=== PATIENT | female | born 1985 | race Caucasian/White ===

== ENCOUNTER 2018-04-16 21:15 | Emergency (ER) | payer MEDICAID, SELFPAY ==
[2018-04-16 21:16] VITALS: BP 135/61; PULSE 106; RESP 16; TEMP 36.1; O2SAT 98; BMI 18.4
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
[2018-04-16 22:18] LABS: Internal QC Validated? YES +Cl - CLEAR BKGD; Pregnancy, Urine Negative Negative
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
== END 2018-04-16 23:23 | disposition home or self-care (01) ==
PROVIDERS: Emergency Medicine; Emergency Provider Emergency Medicine
DX: S70.02XA Contusion of left hip, initial encounter (principal); V49.50XA Passenger injured in collision with unspecified motor vehicles in traffic accident, initial encounter; Y93.89 Activity, other specified; Z72.0 Tobacco use
CPT/HCPCS: 70450; 73502; 81025; 99282

== ENCOUNTER 2022-07-18 15:07 | Emergency (ER) | payer MEDICAID, SELFPAY ==
[2022-07-18 15:07] VITALS: BP 156/86; PULSE 107; RESP 16; TEMP 36.6; O2SAT 100; BMI 18.8
--- NOTE | 2022-07-18 15:42 | EX.ED.SAOD ---
HPI History of Present Illness Chief Complaint: Substance Abuse Narrative Narrative: 36-year-old female presents with her boyfriend for detoxification from fentanyl and from benzodiazepines. She states that she is also uses methamphetamines, but realizes there is no detox for that. She denies any alcohol use. She states her last used fentanyl was the day before yesterday. She is experiencing diarrhea, and abdominal cramping. Yesterday, she took 2 bar of benzodiazepines. She states that she usually injects fentanyl, and was skin popping a few months ago. She thinks that she has been through detox here when they first opened up but cannot recall when her last detox was, if it was over a year ago. [facility] Medical History (Updated 07/18/22 @ 17:50 by Brenton Sánchez MD) Substance abuse Home Medications NK 04/16/18 [History Last Taken Unknown] Allergy/AdvReac Type Severity Reaction Status Date / Time carboxymethylcellulose sodium Allergy Other Verified 07/18/22 15:10 [From Tears Again] mineral oil Allergy Other Verified 07/18/22 15:10 [From Tears Again] mineral oil Allergy Other Verified 07/18/22 15:10 [From Tears Again] petrolatum,white Allergy Other Verified 07/18/22 15:10 [From Tears Again] Social History Smoking Status: Current every day smoker tobacco type: cigarettes ROS ROS ED ROS Narrative Constitutional: No fever, no chills. HEENT: No sore throat. No neck pain. No loss of vision. No rhinorrhea. Cardiovascular: No chest pain. No palpitations. No pedal edema. Respiratory: No cough, no shortness of breath. Abdominal: Positive diffuse abdominal cramping/abdominal pain. No nausea. No vomiting. Positive diarrhea. Genitourinary: No dysuria. No hematuria. Musculoskeletal: No myalgias. No arthralgias. Neurologic: No headaches. No dizziness. No lightheadedness. Skin: No rash. No change in color. Psychiatric: No depression. No anxiety. EXAM Physical Exam Narrative Exam Narrative: Afebrile. Vital signs noted. HEENT: Normocephalic. Atraumatic. PERRL, EOMI. Neck soft and supple. No point tenderness or step off. Cardiovascular: Regular rate and rhythm with intermittent tachycardia. No murmurs, rubs, or gallops appreciated. Respiratory: No tachypnea. Lungs clear to auscultation bilaterally. Gastrointestinal: Abdomen soft, nontender, with normoactive bowel sounds. No rebound or guarding. Neurological: Awake. Alert. Nonfocal, nonlateralizing. Skin: No rash. Normal color. No pallor. Musculoskeletal: No pedal edema. Full range of motion extremities. Const Vital Signs: 07/18/22 15:07 Temperature 97.8 F Temperature Source Temporal Pulse Rate 107 H Respiratory Rate 16 Blood Pressure 156/86 H Blood Pressure Mean 109 Pulse Ox 100 Oxygen Delivery Method Room Air MDM MDM MDM Narrative Medical decision making narrative: Medical screening labs will be obtained and reviewed. I will discuss patient with the hospitalist for detox. Patient states that she is aware that inpatient rehab is not performed here and that she plans on going to [facility] afterwards. I reviewed her urine for drugs of abuse which is positive for amphetamines, MDMA, and benzodiazepines but negative for opiates. However, she states that she abuses fentanyl. There was difficulty in obtaining her laboratory work. I was informed by the RN that they were having difficulty obtaining her blood work, so she eloped from the emergency department. Patient was in stable condition. Lab Data Labs: Laboratory Results - last 24 hr 07/18/22 16:10 Urine Opiates Screen NEGATIVE Urine Methadone Screen NEGATIVE Ur Barbiturates Screen NEGATIVE Ur Phencyclidine Scrn NEGATIVE Ur Amphetamines Screen POSITIVE H MDMA (Ecstasy) Screen POSITIVE H U Benzodiazepines Scrn POSITIVE H Urine Cocaine Screen NEGATIVE U Cannabinoids Screen NEGATIVE Ur Drug Screen Comment Discharge Plan Triage Chief Complaint: Substance Abuse ED Provider: Brenton Sánchez Dx/Rx/DC Orders Clinical Impression: Opiate addiction, Benzodiazepine abuse, Desire for detoxification Prescriptions: No Action NK Primary Care Provider: Care Physician,No Primary Referrals: Care Physician,No Primary [Primary Care Provider] - Disposition Disposition: Elopement Discharge Date/Time: 07/18/22 17:49
--- NOTE | 2022-07-18 15:54 | ED.RN ---
Per pt jaqueline to give information to Aurea guest relations officer through [facility] also jaqueline to give information to Vitor from [facility].
--- NOTE | 2022-07-18 17:43 | ED.RN ---
RN to the bedside to obtain bloodwork and pt is still deflecting, requesting mother to be at bedside, rn asked how soon mom would be here, pt states soon. RN informs pt that bloodwork needs to get done and she has had enough time to wait. Pt states she would rather leave than had blood drawn without mother. RN informed pt that if she wishes to leave, she is able to. PT is leaving. Dr. Sánchez notified at this time.
== END 2022-07-18 17:49 | disposition left against medical advice (07) ==
LOC: ED 16:19
PROVIDERS: Emergency Provider Emergency Medicine; Visit Provider Emergency Medicine
DX: F11.20 Opioid dependence, uncomplicated (principal); F13.19 Sedative, hypnotic or anxiolytic abuse with unspecified sedative, hypnotic or anxiolytic-induced disorder; F17.210 Nicotine dependence, cigarettes, uncomplicated
CPT/HCPCS: 99281

== ENCOUNTER 2022-07-19 09:58 | Observation (INO) | payer MEDICAID, SELFPAY ==
[2022-07-19 09:59] VITALS: BP 147/102; PULSE 120; RESP 16; TEMP 36.6; O2SAT 100
[2022-07-19 11:11] LABS: Vista UDS pH Range 6
[2022-07-19 11:15] LABS: Amphetamine Urine VISTA POSITIVE (<1000 ng/mL); Barbiturate Urine VISTA NEGATIVE (< 200 ng/mL); Benzodiazepine Urine VISTA POSITIVE (< 200 ng/mL); Cocaine Urine VISTA NEGATIVE (< 300 ng/mL); Ecstacy Urine VISTA POSITIVE (< 500 ng/mL); Methadone Urine VISTA NEGATIVE (< 300 ng/mL); PCP Urine VISTA NEGATIVE (< 25 ng/mL); THC Urine VISTA NEGATIVE (< 50 ng/mL)
[2022-07-19 11:33] LABS: Absolute Lymphocyte Count 1.18 X10^3/uL (0.83-4.51); Absolute Neutrophil Count 4.8 X10^3/uL (2.0-7.7); Basophil# 0.04 X10^3/uL; Basophil% 0.6 % (0-1); Eosinophils% 1.5 % (0-5); Hematocrit 39.2 % (37-47); Hemoglobin 12.1 g/dL (12.0-15.0); Lymphocyte # 1.18 X10^3/ul (0.83-4.51); Mean Corp Hgb Conc 30.9 g/dL (32-36); Mean Corpuscular Hgb 28.8 pg (27.0-32.0); Mean Corpuscular Volume 93.3 fL (81-99); Mean Platelet Vol. 9.4 fl (6.2-12.0); Monocyte# 0.43 X10^3/uL; Monocyte% 6.6 % (0-10); NRBC Flagged by Analyzer 0 % (0-5); Neutrophil # 4.77 X10^3/uL (2.7-7.7); POSITIVE COUNT YES; RBC Distribution Width CV 14.9 % (11.6-14.6); RBC Distribution Width SD 51.2 fl (35.1-43.9); White Blood Count 6.5 K/mm3 (4.4-11.0)
[2022-07-19 11:55] LABS: ALB/GLOB Ratio 0.8 RATIO (0.9-2.4); AST(SGOT) 25 U/L (15-37); Alanine Aminotransfer ALT/SGPT 30 U/L (13-56); Albumin, Serum 3.7 g/dL (3.2-5.0); Alkaline Phosphatase 104 U/L (45-117); Anion Gap 9 (5-15); BUN 8 mg/dL (7-18); BUN/Creat Ratio 12.6 RATIO (10-20); Calcium,Total 9.7 mg/dL (8.5-10.1); Chloride 103 mmol/L (98-107); Creatinine, Serum 0.64 mg/dL (0.55-1.02); EST Glomerular Filtration Rate 113 mL/min (>60); Est Glom Filt Rate - Afr Amer 137 mL/min (>60); Globulin 4.9 g/dL (2.2-4.2); Glucose 112 mg/dL (74-106); Potassium 4.2 mmol/L (3.5-5.1); Protein, Total 8.6 g/dL (6.4-8.2); Sodium Level 135 mmol/L (136-145)
[2022-07-19 12:00] VITALS: BP 140/122
[2022-07-19 12:09] LABS: Differential Indicated SCAN CRITERIA MET
[2022-07-19 12:17] LABS: Platelet Estimate ADEQUATE (ADEQ)
[2022-07-19 12:37] LABS: Internal QC Validated? YES +Cl - CLEAR BKGD; Pregnancy, Serum, hCG Quali. NEGATIVE Negative
[2022-07-19 12:39] VITALS: BP 140/122; PULSE 79; RESP 16; TEMP 37; O2SAT 99
--- NOTE | 2022-07-19 12:41 | EX.ED.SAOD ---
HPI History of Present Illness Chief Complaint: Substance Abuse Narrative Narrative: Patient presenting for opioid detox. She also admits to doing benzodiazepines, methamphetamine. She states he used fentanyl. Last use was a couple days ago. She was here yesterday for detox but eloped. Today she states he is going to stay. She states she started to feel a little bit of withdrawal. [facility] Medical History Substance abuse Home Medications NK 04/16/18 [History Last Taken Unknown] Allergy/AdvReac Type Severity Reaction Status Date / Time carboxymethylcellulose sodium Allergy Other Verified 07/19/22 10:01 [From Tears Again] mineral oil Allergy Other Verified 07/19/22 10:01 [From Tears Again] mineral oil Allergy Other Verified 07/19/22 10:01 [From Tears Again] petrolatum,white Allergy Other Verified 07/19/22 10:01 [From Tears Again] Social History Smoking Status: Current every day smoker tobacco type: cigarettes ROS ROS ED Constitutional Constitutional ED: Denies chills, fever(s) or sweats Eyes Eyes: Denies blurry vision or change in vision ENT ENT ED: Denies ear pain or sore throat Cardiovascular Cardiovascular: Denies chest pain, palpitations or racing heartbeat Respiratory/Chest Respiratory/Chest: Denies cough, dyspnea or sputum Gastrointestinal Gastrointestinal: Denies abdominal pain, constipation, diarrhea, nausea or vomiting Genitourinary Genitourinary ED: Denies dysuria, hematuria or urinary frequency Musculoskeletal Musculoskeletal: Denies arthralgias, myalgias or neck pain Integumentary Denies abscess, Abrasions or rash Neurologic Neurologic: Denies headache(s), paresthesias or weakness Psychiatric Psychiatric: Reports anxiety; Denies depression, suicidal ideation or suicidal thoughts Endocrine Endocrinology: Denies polydipsia or polyuria EXAM Physical Exam Const Vital Signs: 07/19/22 09:59 Temperature 97.9 F Temperature Source Temporal Pulse Rate 120 H Respiratory Rate 16 Blood Pressure 147/102 H Blood Pressure Mean 117 Pulse Ox 100 Oxygen Delivery Method Room Air Positive well nourished General Appearance ED: NAD; Negative for pallor HEENT Reports moist mucous membranes Eyes PERRL and EOMs intact bilaterally Chest Wall inspection of chest normal and palpation of chest normal Resp normal respiratory effort and clear to auscultation bilaterally Cardio regular rate Rate: tachycardic GI soft to palpation Back/Spine no CVA tenderness Neuro oriented x3 and CN's II-XII intact bilaterally Motor Exam: strength 5/5 throughout Psych mental status grossly normal Mood & Affect: anxious Skin General Skin Exam: Negative for jaundice or pallor MDM MDM MDM Narrative Medical decision making narrative: Patient presenting with desire for detox. She states she used opioids, benzos, methamphetamine. She started to feel symptomatic. Apparently she was here yesterday and eloped. She states he is going to stay today. Blood work was obtained and her CBC is within normal limits. LFTs, renal function, electrolytes unremarkable. EtOH negative. Urine drug screen positive for benzodiazepines, MDMA, amphetamines. hCG is negative. Patient discussed with the hospitalist for admission. Impression: 1. Desire for opioid detox 2. Desire for benzodiazepine detox 3. Methamphetamine abuse Lab Data Attestation: I reviewed the patient's lab results. Labs: Laboratory Results - last 24 hr 07/19/22 07/19/22 07/19/22 10:44 11:20 11:20 WBC 6.5 RBC 4.20 Hgb 12.1 Hct 39.2 MCV 93.3 MCH 28.8 MCHC 30.9 L RDW Std Deviation 51.2 H RDW Coeff of Jeanine 14.9 H Plt Count MPV 9.4 Immature Gran % (Auto) 0.300 Neut % (Auto) 73.0 H Lymph % (Auto) 18.0 L [place] % (Auto) 6.6 Eos % (Auto) 1.5 Baso % (Auto) 0.6 Absolute Neuts (auto) 4.8 Absolute Lymphs (auto) 1.18 Nucleated RBC % 0 Platelet Estimate ADEQUATE Sodium Potassium Chloride Carbon Dioxide Anion Gap BUN Creatinine Est GFR (MDRD) Af Amer Est GFR (MDRD) Non-Af BUN/Creatinine Ratio Glucose Calcium Total Bilirubin AST ALT Alkaline Phosphatase Total Protein Albumin Globulin Albumin/Globulin Ratio Serum , Qual Urine Opiates Screen NEGATIVE Urine Methadone Screen NEGATIVE Ur Barbiturates Screen NEGATIVE Ur Phencyclidine Scrn NEGATIVE Ur Amphetamines Screen POSITIVE H MDMA (Ecstasy) Screen POSITIVE H U Benzodiazepines Scrn POSITIVE H Urine Cocaine Screen NEGATIVE U Cannabinoids Screen NEGATIVE Ur Drug Screen Comment Ethyl Alcohol 4.0 07/19/22 07/19/22 11:20 11:20 WBC RBC Hgb Hct MCV MCH MCHC RDW Std Deviation RDW Coeff of Jeanine Plt Count MPV Immature Gran % (Auto) Neut % (Auto) Lymph % (Auto) [place] % (Auto) Eos % (Auto) Baso % (Auto) Absolute Neuts (auto) Absolute Lymphs (auto) Nucleated RBC % Platelet Estimate Sodium 135 L Potassium 4.2 Chloride 103 Carbon Dioxide 23.0 Anion Gap 9 BUN 8 Creatinine 0.64 Est GFR (MDRD) Af Amer 137 Est GFR (MDRD) Non-Af 113 BUN/Creatinine Ratio 12.6 Glucose 112 H Calcium 9.7 Total Bilirubin 0.20 AST 25 ALT 30 Alkaline Phosphatase 104 Total Protein 8.6 H Albumin 3.7 Globulin 4.9 H Albumin/Globulin Ratio 0.8 L Serum , Qual NEGATIVE Urine Opiates Screen Urine Methadone Screen Ur Barbiturates Screen Ur Phencyclidine Scrn Ur Amphetamines Screen MDMA (Ecstasy) Screen U Benzodiazepines Scrn Urine Cocaine Screen U Cannabinoids Screen Ur Drug Screen Comment Ethyl Alcohol Discharge Plan Triage Chief Complaint: Substance Abuse ED Provider: Mj Ramirez Dx/Rx/DC Orders Prescriptions: No Action NK Primary Care Provider: Care Physician,No Primary Referrals: Care Physician,No Primary [Primary Care Provider] -
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
--- NOTE | 2022-07-19 13:11 | NURSING ---
310 OBS TOSHA OPIOD DETOX, BENZO DETOX
[2022-07-19 13:39] VITALS: BMI 18.4
[2022-07-19 13:52] LABS: HIV - WCH Non-Reactive (Nonreactive); Hepatitis C Antibody Preliminary Reactive (Nonreactive)
[2022-07-19] MEDS: Phenobarbital 32.4 MG Tablet 97.2 MG PO ×3 (14:19→21:39)
[2022-07-19 14:20] VITALS: O2SAT 98
[2022-07-19 14:22] VITALS: BMI 18.6
--- NOTE | 2022-07-19 14:30 | CM.ED ---
Social Work Note Referral Source: Case Find Referral Reason; RAMP SADE met with patient and introduced herself and role as [facility] [employer] Pip[employer] Designer. Patient laying on hospital bed in street clothes and agreeable to speak with SADE. Patient reports already reviewing rules regarding RAMP with [facility] Walker and signed the contract. SADE briefly reviewed the rules again including addictions counselor Jaja assisting patient with discharge planning. SW inquired about drug of choice and date of last use. Patient reports she needs to detox from Xanax and fentanyl which were last used 2 or 3 days ago. Patient reports she has a three month old daughter who is staying with her parents and have been since the child was born. Patient reports she has an active case with [facility] and the high risk case manager is Vitor. Patient also reports she is on probation through the [facility] program or drug court with Aurea. Patient reports her PO is aware she was coming to [facility] for detox. Patient reports her main supports are her parents. No other needs voiced at this time. SADE contacted Jaja to inform her patient was admitted to [facility] for detox. SADE informed Jaja patient is working with customs officer and CS[employer]. Wilkinson to follow up with patient tomorrow. Safia Aguilar C SOFTWARE DEVELOPER, [place]
--- NOTE | 2022-07-19 15:15 | ED.RN ---
LAB CALLED THIS RN WITH CRITICAL LAB RESULT FOR THIS PT. PT WAS DC FROM ED BUT LAB STATES THAT [facility] DID NOT TAKE LAB RESULT. CHARGE NURSE CALLED [facility] CHARGE AND UPDATED WITH POS HEP C
[2022-07-19 18:14] VITALS: BP 108/75; PULSE 77; RESP 18; TEMP 36.5; O2SAT 98
[2022-07-19] MEDS: hydrOXYzine PAM 25 MG Capsule 50 MG PO (18:19)
[2022-07-19] MEDS: Acetaminophen 325 MG Tablet 650 MG PO (18:19)
[2022-07-19] MEDS: traZODone 100 MG Tablet PO (21:38)
[2022-07-19 21:41] VITALS: BP 99/64; PULSE 75; RESP 17; TEMP 36.7; O2SAT 97
[2022-07-20 02:00] VITALS: BP 111/66; PULSE 72; RESP 14; TEMP 36.6; O2SAT 98
[2022-07-20] MEDS: Phenobarbital 32.4 MG Tablet 97.2 MG PO (05:44)
[2022-07-20 08:44] VITALS: O2SAT 96
--- NOTE | 2022-07-20 08:46 | NURSING ---
Pt states she wants this RN to call her mother for a ride home. This RN asked why. Pt stated that I can do this at home. This RN asked the real reason why she wanted to go home as pt is exhibiting all the signs of withdrawal. Pt raised voice and said I just need a cigerette. This RN offered Nicotine patch and pt refused. I have Suboxone at home, I can do this at home. This RN called Roma, pts mother and mother stated that the patient is not aloud to come home to their house and is not sure if she would come pick her up. she has to talk to her father about that. This RN went back in the room and informed pt. This RN informed pt of what was talked about between Myself and her Mother. This RN offered prn's and phenobarb early and pt refused. I just want to go home. this Rn reminded pt about that fact that she wanted to do this for her baby. pt pulled blanket over her head and spoke about how she is doing it for her baby and can go home and detox there. This RN will call father at this time.
--- NOTE | 2022-07-20 09:02 | NURSING ---
This RN called Roma, pts mother again. Roma states she will send her father to come get her. Roma asked if she could come back to the program if she wants too. This RN explained she can come back but would have to go through the ED again. This RN did ask pt if she wanted to wait until Jaja came in, pt refused.
--- NOTE | 2022-07-20 09:52 | NURSING ---
Pt did not let this nurse get vital signs or perform assessment as she was ready to go home.
--- NOTE | 2022-07-20 10:59 | PCM.HOSP.N ---
Hospitalist Note Patient left AGAINST MEDICAL ADVICE on the morning of 07/20/2022.
== END 2022-07-20 09:50 | disposition left against medical advice (07) ==
LOC: ED 10:26 → MS3 13:01
PROVIDERS: Admitting Provider Internal Medicine; Emergency Provider Student in an Organized Health Care Education/Training Program; Visit Provider Internal Medicine
DX: F11.23 Opioid dependence with withdrawal (principal); F13.19 Sedative, hypnotic or anxiolytic abuse with unspecified sedative, hypnotic or anxiolytic-induced disorder; F15.10 Other stimulant abuse, uncomplicated; F16.10 Hallucinogen abuse, uncomplicated; F17.210 Nicotine dependence, cigarettes, uncomplicated; F41.1 Generalized anxiety disorder
CPT/HCPCS: 80053; 80307; 82077; 84703; 85025; 86703; 86803; 99281; 99283; H0012

== ENCOUNTER → 2024-01-04 | Outpatient (CLI) | payer MEDICAID, SELFPAY ==
[2024-01-04 09:56] LABS: Absolute Lymphocyte Count 1.33 X10^3/uL (0.83-4.51); Absolute Neutrophil Count 3.7 X10^3/uL (2.0-7.7); Basophil# 0.03 X10^3/uL; Basophil% 0.5 % (0-1); Eosinophil# 0.12 X10^3/uL; Eosinophils% 2.1 % (0-5); Hematocrit 44.1 % (37-47); Hemoglobin 14.9 g/dL (12.0-15.0); Lymphocyte # 1.33 X10^3/ul (0.83-4.51); Lymphocyte % 23.3 % (19-41); Mean Corp Hgb Conc 33.8 g/dL (32-36); Mean Corpuscular Hgb 34.1 pg (27.0-32.0); Mean Corpuscular Volume 100.9 fL (81-99); Mean Platelet Vol. 8.8 fl (6.2-12.0); Monocyte# 0.53 X10^3/uL; Monocyte% 9.3 % (0-10); NRBC Flagged by Analyzer 0 % (0-5); Neutrophil # 3.69 X10^3/uL (2.7-7.7); Neutrophil % 64.6 % (47-70); Platelet Count 339 K/mm3 (150-450); RBC Distribution Width CV 11.4 % (11.6-14.6); RBC Distribution Width SD 42.2 fl (35.1-43.9); Red Blood Count 4.37 M/mm3 (4.2-5.4); White Blood Count 5.7 K/mm3 (4.4-11.0)
[2024-01-04 10:08] LABS: Prothrombin Time (Protime)PT. 12.8 SECONDS (11.7-14.9)
[2024-01-04 10:33] LABS: ALB/GLOB Ratio 0.9 RATIO (0.9-2.4); AST(SGOT) 20 U/L (15-37); Alanine Aminotransfer ALT/SGPT 35 U/L (13-56); Albumin, Serum 4.1 g/dL (3.2-5.0); Alkaline Phosphatase 76 U/L (45-117); Anion Gap 8 (5-15); BUN 8 mg/dL (7-18); BUN/Creat Ratio 9.4 RATIO (10-20); Calcium,Total 9.8 mg/dL (8.5-10.1); Chloride 105 mmol/L (98-107); Creatinine, Serum 0.86 mg/dL (0.55-1.02); EST Glomerular Filtration Rate 80 mL/min (>60); Est Glom Filt Rate - Afr Amer 97 mL/min (>60); Globulin 4.7 g/dL (2.2-4.2); Glucose 51 mg/dL (74-106); Protein, Total 8.8 g/dL (6.4-8.2); Sodium Level 139 mmol/L (136-145)
[2024-01-04 11:01] LABS: HIV - WCH Non-Reactive (Nonreactive); Hepatitis B Surface Antibody Reactive; Hepatitis B Surface Antigen Non-Reactive (Nonreactive)
[2024-01-08 14:10] LABS: HCV Quant. RNA PCR 5100000 IU/mL (.); HCV log 10 6.708 (.); Hepatitis A AB, Total Positive (Negative); Hepatitis C Genotype 1a (.)
== END | disposition home or self-care (01) ==
PROVIDERS: Referring Provider Family Medicine; Visit Provider Family Medicine
DX: B18.2 Chronic viral hepatitis C (principal)
CPT/HCPCS: 36415; 80053; 85025; 85610; 86703; 86706; 86708; 87340; 87522; 87902